=== PATIENT | male | born 1990 | race Two or more races ===

== ENCOUNTER 2024-02-05 13:27 | Inpatient (IN) | payer BC ==
[~2024-02-05] VITALS: Ht 152.4 cm; Wt 66.7 kg
[2024-02-05] MEDS ORDERED: METOCLOPRAMIDE HCL 5 MG/ML VIAL IM ONE (13:45)
[2024-02-05] MEDS ORDERED: FAMOtidine 10 MG/ML (4ML VIAL) IV ONE (13:45)
[2024-02-05] MEDS ORDERED: INSULIN REGULAR, HUMAN 1,000 UNIT/10 ML UNITS IV SCH (13:45)
[2024-02-05] MEDS ORDERED: 0.9 % SODIUM CHLORIDE 1,000 ML IV ONE ×2 (13:45→19:15)
[2024-02-05 14:42] LABS: ABG PH 7.518 (7.35-7.45); ABG PO2 107.3 mmHg (80-100); ABG pCO2 21.5 mmHg (35-45); BASE EXCESS -3.4 mmol/l; BICARBONATE 17.1 mmol/l (23-25); SaO2 98.7 %; Tco2 17.8 mmol/l; allen test SATISFACTORY; o2 21 %; puncture site RADIAL RIGHT
[2024-02-05 15:25] LABS: HEMATOCRIT 35.9 % (39.0-48.0); HEMOGLOBIN 12.3 g/dL (13-16.00); MEAN CELL VOLUME 79.7 fL (80.0-100.00); MEAN CORPUSCULAR HEMOGLOBIN 27.3 pg (27.00-32.0); MEAN CORPUSCULAR HGB CONC 34.3 g/dl (32.0-36.0); PLATELET COUNT 373 K/uL (150-450); RED CELL DISTRIBUTION WIDTH 13.5 % (11.5-14.5)
[2024-02-05 16:10] LABS: ALBUMIN 4.3 gm/dL (3.4-5.0); BILIRUBIN TOTAL 1.31 mg/dL (0.3-1.2); CALCIUM 10.4 mg/dL (8.5-10.1); CREATININE SERUM 1.7 mg/dL (0.70-1.30); GFR 46.09; GLOBULINA 3.6 G/DL (2.4-3.5); POTASSIUM 4.58 mEq/L (3.5-5.1); TOTAL PROTEIN 7.9 gm/dL (6.4-8.2)
[2024-02-05 16:17] LABS: BILIRUBIN,CONJUGATED 0.2 mg/dL (0.0-0.2); BILIRUBIN,UNCONJUGATED 1.11 mg/dL (0.0-0.6)
[2024-02-05] MEDS ORDERED: ONDANSETRON HCL 2 MG/ML VIAL IV ONE (18:30)
[2024-02-05 18:53] LABS: PH,URINE 5.5 (5.0-8.0); URINE APPEARANCE Clear; URINE BILIRRUBIN Negative (NEGATIVE); URINE BLOOD Trace; URINE COLOR Yellow; URINE LEUKOCYTE Negative; URINE NITRATE Negative; URINE UROBILINOGEN 0.2 E.U./dl
[2024-02-05 18:54] LABS: URINE BACTERIA 18.8 uL (0.0-1933); URINE RBC 2.9 uL (0.0-20.8)
[2024-02-05 19:04] LABS: COCAINE NEGATIVE (NEGATIVE); METHADONE NEGATIVE (NEGATIVE); OPIATES NEGATIVE (NEGATIVE); THC ( Cannabinoids) NEGATIVE (NEGATIVE)
[2024-02-05 19:15] LABS: URINE CAST 1.06 uL (0.0-1.40); URINE EPITHELIAL CELLS 1.2 uL (0.0-38.8); URINE GLUCOSE >=1000 MG/DL (NEGATIVE); URINE KETONE 80 (NEGATIVE); URINE PROTEIN 300 (NEGATIVE); URINE WBC 1.5 uL (0.0-23.2)
[2024-02-05] MEDS ORDERED: CEFTRIAXONE SODIUM 2,000 MG in 0.9 % SODIUM CHLORIDE 100 ML IV SCH (19:21)
[2024-02-05] MEDS ORDERED: PANTOPRAZOLE SODIUM 40 MG/VIAL VIAL IV SCH (19:23)
[2024-02-05] MEDS ORDERED: ACETAMINOPHEN 500 MG GEL..CAP PO PRN (19:30)
[2024-02-05] MEDS ORDERED: 0.9 % SODIUM CHLORIDE 1,000 ML IV SCH (19:30)
[2024-02-05] MEDS ORDERED: ONDANSETRON HCL 4 MG in 0.9 % SODIUM CHLORIDE 50 ML IV PRN (19:30)
[2024-02-05 20:14] LABS: ABG PH 7.469 (7.35-7.45); ABG PO2 95.9 mmHg (80-100); ABG pCO2 28.7 mmHg (35-45); BASE EXCESS -1.9 mmol/l; BICARBONATE 20.4 mmol/l (23-25); SaO2 97.9 %; Tco2 21.3 mmol/l
[2024-02-05 20:22] LABS: allen test SATISFACTORY; o2 21 %; puncture site RADIAL RIGHT
[2024-02-05 21:28] VITALS: BP 154/78; O2SAT 99
[2024-02-05 21:29] LABS: INR 0.99; PARTIAL THROMBOPLASTIN TIME 25.4 SECONDS (22.0-34.0); PROTHROMBIN TIME 10.8 SECONDS (9.0-11.5)
[2024-02-05 21:32] LABS: C-REACTIVE PROTEIN 0.66 MG/DL (0.00-0.29); CALCIUM 8.8 mg/dL (8.5-10.1); CREATININE SERUM 1.31 mg/dL (0.70-1.30); GFR 62.27; PHOSPHOROUS 3.2 mg/dL (2.5-4.9); POTASSIUM 4.2 mEq/L (3.5-5.1)
[2024-02-05 23:54] VITALS: BP 113/77; O2SAT 98
[2024-02-06] VITALS (16 sets, daily range): BP systolic 128–175; BP diastolic 62–101; O2SAT 98–100
[2024-02-06 01:56] LABS: CALCIUM 8.4 mg/dL (8.5-10.1); CREATININE SERUM 0.98 mg/dL (0.70-1.30); GFR 87.04; POTASSIUM 4.24 mEq/L (3.5-5.1)
[2024-02-06 05:43] LABS: CALCIUM 8.6 mg/dL (8.5-10.1); CREATININE SERUM 0.94 mg/dL (0.70-1.30); GFR 91.33; POTASSIUM 3.82 mEq/L (3.5-5.1)
[2024-02-06] MEDS ORDERED: DEXTROSE 5 %-0.45 % SOD CHLORD 1,000 ML IV SCH (06:15)
[2024-02-06] MEDS ORDERED: ENOXAPARIN SODIUM 40 MG/0.4 ML SYRINGE SUBCUTANEO SCH (09:00)
[2024-02-06] MEDS ORDERED: METOCLOPRAMIDE HCL 5 MG/ML VIAL IV SCH (13:34)
[2024-02-06] MEDS ORDERED: SODIUM CHLORIDE 0.45 % 1,000 ML IV SCH (22:30)
[2024-02-06 23:34] LABS: HEMATOCRIT 34.1 % (39.0-48.0); HEMOGLOBIN 11.7 g/dL (13-16.00); MEAN CELL VOLUME 79.5 fL (80.0-100.00); MEAN CORPUSCULAR HEMOGLOBIN 27.2 pg (27.00-32.0); MEAN CORPUSCULAR HGB CONC 34.2 g/dl (32.0-36.0); PLATELET COUNT 310 K/uL (150-450); RED BLOOD COUNT 4.29 M/uL (4.00-6.00); RED CELL DISTRIBUTION WIDTH 13.9 % (11.5-14.5)
[2024-02-06 23:35] LABS: ALBUMIN 3.3 gm/dL (3.4-5.0); BILIRUBIN TOTAL 0.58 mg/dL (0.3-1.2); CALCIUM 8.6 mg/dL (8.5-10.1); GFR 85.03; GLOBULINA 3.6 G/DL (2.4-3.5); POTASSIUM 3.49 mEq/L (3.5-5.1); TOTAL PROTEIN 6.9 gm/dL (6.4-8.2)
[2024-02-07] VITALS (7 sets, daily range): BP systolic 130–161; BP diastolic 62–98; O2SAT 98–100
[2024-02-07 06:31] LABS: HEMATOCRIT 33.3 % (39.0-48.0); HEMOGLOBIN 11.5 g/dL (13-16.00); MEAN CORPUSCULAR HEMOGLOBIN 27.7 pg (27.00-32.0); MEAN CORPUSCULAR HGB CONC 34.7 g/dl (32.0-36.0); PLATELET COUNT 286 K/uL (150-450); RED BLOOD COUNT 4.16 M/uL (4.00-6.00); RED CELL DISTRIBUTION WIDTH 13.5 % (11.5-14.5)
[2024-02-07 07:24] LABS: ALBUMIN 3.1 gm/dL (3.4-5.0); BILIRUBIN TOTAL 0.83 mg/dL (0.3-1.2); CALCIUM 9.1 mg/dL (8.5-10.1); CREATININE SERUM 0.86 mg/dL (0.70-1.30); GFR 101.2; GLOBULINA 2.9 G/DL (2.4-3.5); MAGNESIUM 1.8 mg/dL (1.8-2.4); PHOSPHOROUS 2.3 mg/dL (2.5-4.9); POTASSIUM 3.46 mEq/L (3.5-5.1)
[2024-02-07 07:25] LABS: C-REACTIVE PROTEIN 0.61 MG/DL (0.00-0.29)
[2024-02-07] MEDS ORDERED: INSULIN REGULAR, HUMAN 100 UNITS in 0.9 % SODIUM CHLORIDE 100 ML IV SCH (08:30)
[2024-02-07] MEDS ORDERED: ENALAPRILAT DIHYDRATE 1.25 MG/ML VIAL IV PRN (09:00)
[2024-02-07] MEDS ORDERED: POTASSIUM CHLORIDE 20MEQ/100ML H2O PB IV NR (10:37)
[2024-02-07] MEDS ORDERED: POTASSIUM BICARBONATE/CIT AC 25 MEQ TABLET.EFF PO ONE (11:00)
[2024-02-07] MEDS ORDERED: SODIUM BICARBONATE 50MEQ/50ML VIAL IV STA (13:06)
[2024-02-07 18:56] LABS: CALCIUM 8.5 mg/dL (8.5-10.1); CREATININE SERUM 0.9 mg/dL (0.70-1.30); GFR 96.03; POTASSIUM 3.09 mEq/L (3.5-5.1)
[2024-02-07] MEDS ORDERED: INSULIN GLARGINE,HUM.REC.ANLOG 1,000 UNITS/10 ML UNITS SUBCUTANEO STA (20:51)
[2024-02-07] MEDS ORDERED: SODIUM CHLORIDE 0.45 % 1,000 ML IV SCH (21:00)
[2024-02-07] MEDS ORDERED: DEXTROSE 50 % IN WATER 0.5 G/ML DISP.SYRIN IV PRN (21:00)
[2024-02-07] MEDS ORDERED: INSULIN LISPRO 1,000 UNIT/10 ML UNITS SUBCUTANEO PRN (21:00)
[2024-02-08 04:00] VITALS: BP 132/98; O2SAT 100
[2024-02-08 04:04] VITALS: BP 86/75; O2SAT 99
[2024-02-08 05:18] LABS: HEMATOCRIT 32.8 % (39.0-48.0); HEMOGLOBIN 11.6 g/dL (13-16.00); MEAN CELL VOLUME 79.1 fL (80.0-100.00); MEAN CORPUSCULAR HEMOGLOBIN 27.9 pg (27.00-32.0); MEAN CORPUSCULAR HGB CONC 35.3 g/dl (32.0-36.0); PLATELET COUNT 297 K/uL (150-450); RED BLOOD COUNT 4.15 M/uL (4.00-6.00); RED CELL DISTRIBUTION WIDTH 13.2 % (11.5-14.5)
[2024-02-08 05:38] LABS: CALCIUM 8.7 mg/dL (8.5-10.1); CREATININE SERUM 0.94 mg/dL (0.70-1.30); GFR 91.33; POTASSIUM 3.32 mEq/L (3.5-5.1)
[2024-02-08 07:05] VITALS: BP 132/92; O2SAT 99
[2024-02-08] MEDS ORDERED: INSULIN GLARGINE,HUM.REC.ANLOG 1,000 UNITS/10 ML UNITS SUBCUTANEO SCH (09:00)
[2024-02-08] MEDS ORDERED: POTASSIUM CHLORIDE IN WATER 100 ML IV NR (11:56)
[2024-02-08] MEDS ORDERED: MAGNESIUM SULFATE IN WATER 50 ML IV NR (11:57)
== END 2024-02-08 12:30 | disposition left against medical advice (07) | DRG 638 ==
LOC: ER 13:27 → ICU-2 19:31 → ICU 02-06 20:28
PROVIDERS: General Practice; Internal Medicine Endocrinology, Diabetes & Metabolism; Internal Medicine Infectious Disease; ADMIT Internal Medicine; ATTEND Internal Medicine
PROC: BW21YZZ Computerized Tomography (CT Scan) of Abdomen and Pelvis using Other Contrast (ICD-10-PCS; principal; 2024-02-06)
DX: E10.10 Type 1 diabetes mellitus with ketoacidosis without coma (principal); N17.9 Acute kidney failure, unspecified; E86.0 Dehydration; K31.84 Gastroparesis; Z79.4 Long term (current) use of insulin